=== PATIENT | male | born 1945 | race Caucasian/White ===

== ENCOUNTER → 2016-10-11 | Outpatient (CLI) | payer MEDICARE, OTHER | LOC: LAB.O 10:13 | PROVIDERS: ATTEND Nurse Practitioner Family | DX: I25.10 Atherosclerotic heart disease of native coronary artery without angina pectoris (principal) ==

== ENCOUNTER → 2016-10-18 | Outpatient (CLI) | payer MEDICARE, OTHER | LOC: LAB.O 10:43 | PROVIDERS: ATTEND Nurse Practitioner Family | DX: I25.10 Atherosclerotic heart disease of native coronary artery without angina pectoris (principal) ==

== ENCOUNTER → 2016-11-09 | Outpatient (CLI) | payer MEDICARE, OTHER | END | disposition home or self-care (01) | LOC: LAB.O 09:59 | PROVIDERS: ATTEND Nurse Practitioner Family | DX: I25.10 Atherosclerotic heart disease of native coronary artery without angina pectoris (principal) ==

== ENCOUNTER → 2016-12-19 | Outpatient (CLI) | payer MEDICARE, OTHER | END | disposition home or self-care (01) | LOC: LAB.O 09:21 | PROVIDERS: ATTEND Nurse Practitioner Family | DX: I25.10 Atherosclerotic heart disease of native coronary artery without angina pectoris (principal) ==

== ENCOUNTER → 2016-12-30 | Outpatient (CLI) | payer MEDICARE, OTHER ==
--- NOTE | 2017-01-01 06:56 | US ---
Procedure: US CAROTID DOPPLER BILATERAL Exam Date: 12/30/2016 9:45 AM CDT Ordering Provider: Sravani Coronado Clinical Indication: ATHEROSCLEROSIS Comparison: None TECHNIQUE : Real-time cerebrovascular ultrasonography was obtained from sternal notch to the angle of the mandible bilaterally utilizing key scale, color flow and spectral Doppler analysis. Systolic velocity ratios were calculated for internal carotid artery to common carotid artery bilaterally. FINDINGS: RIGHT CAROTID BIFURCATION: Mild atherosclerotic plaque. Peak systolic and end-diastolic velocities in the right internal carotid artery are 52 and 11 cm/s. Internal carotid/common carotid ratio is 0.6. Right vertebral flow is antegrade. LEFT CAROTID BIFURCATION: Mild atherosclerotic plaque. Peak systolic and end-diastolic velocities in the left internal carotid artery are 87 and 19 cm/s. Internal carotid/common carotid ratio is 0.7. Left vertebral flow is antegrade. IMPRESSION: 1. Mild atherosclerotic plaque in each carotid bulb and ICA origin. 2. There is no significant stenosis (36 % on the right and 35% on the left) at both ICA origins. 3. Bilateral antegrade vertebral artery flow. Electronically signed by: Wayne Robins MD 01/01/2017 6:55 AM CDT
== END | disposition home or self-care (01) ==
LOC: US 09:37
PROVIDERS: ATTEND Nurse Practitioner Family
DX: I65.23 Occlusion and stenosis of bilateral carotid arteries (principal); I25.10 Atherosclerotic heart disease of native coronary artery without angina pectoris; I70.8 Atherosclerosis of other arteries

== ENCOUNTER → 2017-01-30 | Outpatient (CLI) | payer MEDICARE, OTHER | END | disposition home or self-care (01) | LOC: LAB.O 10:04 | PROVIDERS: ATTEND General Practice | DX: I25.10 Atherosclerotic heart disease of native coronary artery without angina pectoris (principal) ==

== ENCOUNTER → 2017-03-09 | Outpatient (CLI) | payer MEDICARE, OTHER | END | disposition home or self-care (01) | LOC: LAB.O 09:42 | PROVIDERS: ATTEND Nurse Practitioner Family | DX: I25.10 Atherosclerotic heart disease of native coronary artery without angina pectoris (principal) ==

== ENCOUNTER → 2017-03-22 | Outpatient (CLI) | payer MEDICARE, OTHER | END | disposition home or self-care (01) | LOC: LAB.O 10:46 | PROVIDERS: ATTEND Nurse Practitioner Family | DX: I25.10 Atherosclerotic heart disease of native coronary artery without angina pectoris (principal) ==

== ENCOUNTER → 2017-06-19 | Outpatient (CLI) | payer MEDICARE, OTHER | END | disposition home or self-care (01) | LOC: LAB.O 11:56 | PROVIDERS: ATTEND Nurse Practitioner Family | DX: I25.10 Atherosclerotic heart disease of native coronary artery without angina pectoris (principal) ==

== ENCOUNTER → 2017-07-31 | Outpatient (CLI) | payer MEDICARE, OTHER | END | disposition home or self-care (01) | LOC: LAB.O 10:35 | PROVIDERS: ATTEND Nurse Practitioner Family | DX: I48.91 Unspecified atrial fibrillation (principal) ==

== ENCOUNTER → 2017-10-03 | Outpatient (CLI) | payer MEDICARE, OTHER | END | disposition home or self-care (01) | LOC: LAB.O 10:27 | PROVIDERS: ATTEND Nurse Practitioner Family | DX: I48.91 Unspecified atrial fibrillation (principal) ==

== ENCOUNTER → 2017-12-06 | Outpatient (CLI) | payer MEDICARE, OTHER | LOC: LAB.O 10:03 | PROVIDERS: ATTEND Nurse Practitioner Family | DX: I48.91 Unspecified atrial fibrillation (principal) ==

== ENCOUNTER → 2018-01-03 | Outpatient (CLI) | payer MEDICARE, OTHER | LOC: LAB.O 10:54 | PROVIDERS: ATTEND Nurse Practitioner Family | DX: I48.91 Unspecified atrial fibrillation (principal) ==

== ENCOUNTER → 2018-01-19 | Outpatient (CLI) | payer MEDICARE, OTHER | LOC: LAB.O 10:52 | PROVIDERS: ATTEND Nurse Practitioner Family | DX: I48.91 Unspecified atrial fibrillation (principal) ==

== ENCOUNTER → 2018-01-30 | Outpatient (CLI) | payer MEDICARE, OTHER | LOC: LAB.O 10:34 | PROVIDERS: ATTEND Nurse Practitioner Family | DX: I48.91 Unspecified atrial fibrillation (principal) ==

== ENCOUNTER → 2018-05-18 | Outpatient (CLI) | payer MEDICARE, OTHER | LOC: LAB.O 14:00 | PROVIDERS: ATTEND Nurse Practitioner Family | DX: I48.91 Unspecified atrial fibrillation (principal) ==

== ENCOUNTER → 2018-05-28 | Outpatient (CLI) | payer MEDICARE, OTHER | LOC: LAB.O 14:10 | PROVIDERS: ATTEND Nurse Practitioner Family | DX: I48.91 Unspecified atrial fibrillation (principal) ==

== ENCOUNTER → 2018-07-10 | Outpatient (CLI) | payer MEDICARE, OTHER | LOC: LAB.O 11:25 | PROVIDERS: ATTEND Nurse Practitioner Family | DX: I48.91 Unspecified atrial fibrillation (principal) ==

== ENCOUNTER → 2018-08-29 | Outpatient (CLI) | payer MEDICARE, OTHER | LOC: LAB.O 10:49 | PROVIDERS: ATTEND Nurse Practitioner Family | DX: Z51.81 Encounter for therapeutic drug level monitoring (principal) ==

== ENCOUNTER → 2018-10-03 | Outpatient (CLI) | payer MEDICARE, OTHER | LOC: LAB.O 13:01 | PROVIDERS: ATTEND Nurse Practitioner Family | DX: Z51.81 Encounter for therapeutic drug level monitoring (principal) ==

== ENCOUNTER → 2018-10-16 | Outpatient (CLI) | payer MEDICARE, OTHER | LOC: LAB.O 13:46 | PROVIDERS: ATTEND Nurse Practitioner Family | DX: Z51.81 Encounter for therapeutic drug level monitoring (principal) ==

== ENCOUNTER → 2018-10-23 | Outpatient (CLI) | payer MEDICARE, OTHER | LOC: LAB.O 14:36 | PROVIDERS: ATTEND Nurse Practitioner Family | DX: Z51.81 Encounter for therapeutic drug level monitoring (principal) ==

== ENCOUNTER → 2018-12-10 | Outpatient (CLI) | payer MEDICARE, OTHER | LOC: LAB.O 12:49 | PROVIDERS: ATTEND Nurse Practitioner Family | DX: Z51.81 Encounter for therapeutic drug level monitoring (principal) ==

== ENCOUNTER → 2018-12-17 | Outpatient (CLI) | payer MEDICARE, OTHER | LOC: LAB.O 10:42 | PROVIDERS: ATTEND Nurse Practitioner Family | DX: Z51.81 Encounter for therapeutic drug level monitoring (principal) ==

== ENCOUNTER → 2019-02-25 | Outpatient (CLI) | payer MEDICARE, OTHER | LOC: LAB.O 13:34 | PROVIDERS: ATTEND Nurse Practitioner Family | DX: Z51.81 Encounter for therapeutic drug level monitoring (principal) ==

== ENCOUNTER 2019-03-11 08:11 | Emergency (ER) | payer MEDICARE, OTHER ==
[2019-03-11] MEDS ORDERED: ASPIRIN TABLET 325 MG TAB ONE (08:24)
[2019-03-11] MEDS: ASPIRIN TABLET 325 MG TAB PO ONE (08:43)
--- NOTE | 2019-03-11 08:58 | RAD ---
Study: Single Frontal Radiograph of the Chest. Indication:palpitations Comparison: January 31, 2011 Impression: Median sternotomy wires. Cardiomegaly without failure. Scattered calcified pleural plaques at the lung bases. In addition patchy calcifications project over the mid and upper lungs in a similar configuration to the prior but slightly progressed. These likely reflect calcified pleural plaques as well. Mild elevation right hemidiaphragm. No consolidation, pleural effusion, or pneumothorax. No acute osseous abnormality. Electronically signed by: Augusto Everett MD 03/11/2019 8:56 AM CDT
[2019-03-11] MEDS ORDERED: MAGNESIUM SULFATE PREMIX 2GM 50 ML IVPB ONE (10:00)
[2019-03-11] MEDS: MAGNESIUM SULFATE PREMIX 2GM 2 GM in PREMIX BAG 1 BAG IVPB ONE (10:13)
[2019-03-11] MEDS: SODIUM CHLORIDE 0.9% 500ML 500 ML IVS ONE (10:17)
--- NOTE | 2019-03-11 10:31 | ED.PDOC ---
History of Present Illness - General Chief Complaint: Cardiovascular Problem Stated Complaint: Heart palpitations this AM Time Seen by Provider: 03/11/19 09:47 Source: patient Exam Limitations: no limitations - History of Present Illness Initial Comments: Rickey Bonilla 73 y/o male came to er after he felt heart ws pounding on waking up this AM.Denies dizziness,chest pains,lightheadedness.He stated had cut down on his beta bobby since he had been feeling well .Has history of OH/CABG/stent a.fib on anticoagulation with warfarin.DM 2. Timing/Duration: 4-6 hours Severity: moderate Location: other - NO CHEST PAINS Activities at Onset: rest Prior Chest Pain/Cardiac Workup: cardiac cath, echocardiography, heart attack Improving Factors: nothing Worsening Factors: nothing Nitro Today/Relief: 0.4 mg x 1, provided at home Aspirin Treatment Today: 81 mg x 4, provided by ED Associated Symptoms: denies symptoms Allergies/Adverse Reactions: Allergies NO KNOWN ALLERGY Allergy (Verified 03/11/19 08:53) Home Medications: Ambulatory Orders Aspirin [Aspirin Adult Low Dose] 81 mg PO DAILY 03/11/19 Cyclobenzaprine HCl [Flexeril] 10 mg PO TID 03/11/19 Krill Oil [Krill Oil [place]-3] 1 cap PO DAILY 03/11/19 Metformin HCl [Glucophage] 1,000 mg PO BID 03/11/19 Metoprolol Succinate [[place] Sprinkle] 50 mg PO DAILY 03/11/19 Omeprazole 20 mg PO DAILY 03/11/19 Pravastatin Sodium 40 mg PO DAILY 03/11/19 Ramipril 5 mg PO BID 03/11/19 Warfarin Sodium 6 mg PO DAILY 03/11/19 Review of Systems - Review of Systems Constitutional: States: no symptoms reported EENTM: States: no symptoms reported Respiratory: States: no symptoms reported Cardiology: States: see HPI, palpitations Gastrointestinal/Abdominal: States: no symptoms reported Genitourinary: States: no symptoms reported Musculoskeletal: States: no symptoms reported Skin: States: no symptoms reported Neurological: States: no symptoms reported All other Systems: Reviewed and Negative, No Change from Baseline Past Medical History (General) - Patient Medical History Hx Stroke: No Hx of COPD: No Hx Cardiac Disorders: Yes - A fib Hx Congestive Heart Failure: Yes Hx Hypertension: Yes Hx Diabetes: Yes Surgical History: appendectomy, coronary bypass surgery, other - cardiac stent - Vaccination History Hx Tetanus, Diphtheria Vaccination: Yes Hx Influenza Vaccination: Yes Hx Pneumococcal Vaccination: Yes - Social History Hx Tobacco Use: Yes Hx Alcohol Use: Yes - quit Hx Substance Use: No Hx Substance Use Treatment: No Hx Depression: No Hx Physical Abuse: No Hx Emotional Abuse: No - Activities of Daily Living Grooming Ability: Independent Eating (Feeding) Ability: Independent Toileting Ability: Independent - Female History Patient is a Female of Child Bearing Age (10 -59 yrs old): No Patient : No Family Medical History - Family History Father Hx Cardiac Disease: Yes - brother-mi Hx Family Cancer: Yes - dad-pancreas;mom-ovarian Mother Hx Family Cancer: Yes Physical Exam - Physical Exam General Appearance: Alert, Comfortable, No apparent distress Eyes, Ears, Nose, Throat Exam: normal ENT inspection, TMs normal Neck: full range of motion, supple, normal inspection Respiratory: lungs clear, normal breath sounds, no respiratory distress Cardiovascular/Chest: normal peripheral pulses, no gallop, no murmur, irregularly irregular Peripheral Pulses: radial,right: 2+, radial,left: 2+ Gastrointestinal/Abdominal: non tender, soft, no organomegaly Extremity: no calf tenderness, pedal edema - +1 bilaterally Neurologic: alert, oriented x 3 Skin Exam: normal color, warm/dry Lymphatic: no adenopathy Progress - Progress Progress: 03/11/19 10:36 Vital Signs - 8 hr 03/11/19 03/11/19 03/11/19 08:16 08:20 08:21 Temperature 96.6 F L Pulse Rate [L 69 69 finger] Respiratory 20 20 Rate Blood Pressure 158/83 [L arm] O2 Sat by Pulse 96 96 Oximetry - Results/Orders Results/Orders: 03/11/19 08:27 Telemetry .ONCE Pulse Ox Stat 03/11/19 08:30 EKG STAT 03/11/19 11:14 TROPONIN-I, ISTAT Urgent Laboratory Results - last 24 hr 03/11/19 03/11/19 08:40 11:14 WBC 7.6 RBC 4.40 L Hgb 12.9 L Hct 39.6 L MCV 89.8 MCH 29.4 MCHC 32.7 L RDW 14.3 Plt Count 194 MPV 10.3 Absolute Neuts (auto) 6.00 Absolute Lymphs (auto) 0.80 L Absolute Monos (auto) 0.50 Absolute Eos (auto) 0.30 Absolute Basos (auto) 0.00 Neutrophils % 78.9 H Lymphocytes % 10.4 L Monocytes % 6.7 Eosinophils % 3.4 Basophils % 0.6 PT 29.4 H* INR 2.97 H PTT (SP) 35.0 H Sodium 131 L Potassium 4.2 Chloride 96 L Carbon Dioxide 24 Anion Gap 15.2 BUN 14 Creatinine 0.94 BUN/Creatinine Ratio 14.9 Random Glucose 132 H Serum Osmolality 265.0 L Calcium 9.7 Magnesium 1.4 L Creatine Kinase 72 CK-MB (CK-2) 2.4 CK-MB (CK-2) % Not Reportable Troponin I 0.02 0.02 Discuss all test results with patient - EKG/XRAY/CT EKG: Atrial, Fibrillation, nonspecific ST T wave Chg Comments: HR-66 Departure - Departure Clinical Impression: Heart palpitations, Hypomagnesemia, Atrial fibrillation with controlled ventricular rate, 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 Copy, Patient Portal Self Enrollment Referrals: Sampson Linares MD [Primary Care Provider] - 1-2 Weeks Home Medications: Ambulatory Orders Aspirin [Aspirin Adult Low Dose] 81 mg PO DAILY 03/11/19 Cyclobenzaprine HCl [Flexeril] 10 mg PO TID 03/11/19 Krill Oil [Krill Oil [place]-3] 1 cap PO DAILY 03/11/19 Metformin HCl [Glucophage] 1,000 mg PO BID 03/11/19 Metoprolol Succinate [[place] Sprinkle] 50 mg PO DAILY 03/11/19 Omeprazole 20 mg PO DAILY 03/11/19 Pravastatin Sodium 40 mg PO DAILY 03/11/19 Ramipril 5 mg PO BID 03/11/19 Warfarin Sodium 6 mg PO DAILY 03/11/19 Additional Instructions: Continue with all home medications;Take over the counter Vitamin d-3 and Magnesium one pill daily(over the counter;return to ER as needed
[2019-03-11 11:38] VITALS: O2SAT 97
[2019-03-11 12:46] VITALS: BP 123/73; TEMP 96
== END 2019-03-11 12:46 | disposition home or self-care (01) ==
LOC: ER 08:11
DX: I48.91 Unspecified atrial fibrillation (principal); R00.2 Palpitations; E83.42 Hypomagnesemia; I50.9 Heart failure, unspecified; I11.0 Hypertensive heart disease with heart failure; I25.2 Old myocardial infarction; E11.9 Type 2 diabetes mellitus without complications; Z79.01 Long term (current) use of anticoagulants; Z95.5 Presence of coronary angioplasty implant and graft; Z87.891 Personal history of nicotine dependence; Z79.82 Long term (current) use of aspirin; Z79.899 Other long term (current) drug therapy
CPT/HCPCS: 36415; 71045; 80048; 82550; 82553; 84484; 85025; 85610; 85730; 93005; 94760; J3475; J7040

== ENCOUNTER → 2019-03-18 | Outpatient (CLI) | payer MEDICARE, OTHER | LOC: RESP 13:27 | PROVIDERS: ATTEND Nuclear Medicine Nuclear Cardiology | DX: R00.2 Palpitations (principal) ==

== ENCOUNTER 2019-04-03 09:49 | Emergency (ER) | payer MEDICARE, OTHER ==
--- NOTE | 2019-04-03 10:35 | RAD ---
EXAM DESCRIPTION: Chest,2 Views CLINICAL HISTORY: bradycardia COMPARISON: Previous study March 11, 2019 TECHNIQUE: PA/lateral FINDINGS: Large pleural plaques bilaterally unchanged in configuration. Sternotomy wires are present. Mildly elevated right hemidiaphragm. Heart size is prominent with normal pulmonary vascularity. No pleural effusion or pneumothorax. Lungs are otherwise clear with no consolidating infiltrate. Lateral view shows intact sternum and T-spine. Calcific densities clustered over the cardiac silhouette may be related to pleural plaques. Position is higher than expected for gallstones. IMPRESSION: Prominent heart without congestive failure. Electronically signed by: Michael Hairston MD 04/03/2019 10:33 AM CDT
--- NOTE | 2019-04-03 11:22 | ED.PDOC ---
History of Present Illness - General Chief Complaint: Cardiovascular Problem Stated Complaint: bradycardia Time Seen by Provider: 04/03/19 10:00 Source: patient Exam Limitations: no limitations - History of Present Illness Initial Comments: the patient is a 74-year-old male presenting to the emergency room after being sent over from the clinic secondary to functional bradycardia. The patient does have a history of very frequent PVCs. His PVCs do not generate a palpable pulse. When he is having very few PVCs he does have a more than adequate blood pressure. When he stacks up a bunch of PVCs his blood pressure does fall. No syncope. No near syncope. He reports sometimes he feels more PVCs when he lies back flat. He was recently fluid overloaded but now appears to be euvolemic. No chest pain. No shortness of breath currently. He has 98% on room air. He is pleasant and cooperative. He does have some mild dementia.this is a known problem. He does see Dr. Romero. He is scheduled see Dr. Romero again next week. Timing/Duration: unsure Severity: mild Improving Factors: nothing Worsening Factors: nothing Associated Symptoms: denies symptoms Allergies/Adverse Reactions: Allergies NO KNOWN ALLERGY Allergy (Verified 03/11/19 08:53) Home Medications: Ambulatory Orders Aspirin [Aspirin Adult Low Dose] 81 mg PO DAILY 03/11/19 Cyclobenzaprine HCl [Flexeril] 10 mg PO TID 03/11/19 Krill Oil [Krill Oil [place]-3] 1 cap PO DAILY 03/11/19 Metformin HCl [Glucophage] 1,000 mg PO BID 03/11/19 Omeprazole 20 mg PO BEDTIME 03/11/19 Pravastatin Sodium 40 mg PO DAILY 03/11/19 Ramipril 5 mg PO BEDTIME 03/11/19 Warfarin Sodium 6 mg PO .MOTUTHFRSU 03/11/19 Furosemide [Lasix] 20 mg PO DAILY 04/03/19 Metoprolol Succinate [Metoprolol Succinate ER] 50 mg PO DAILY 04/03/19 Review of Systems - Review of Systems Constitutional: States: no symptoms reported EENTM: States: no symptoms reported Respiratory: States: short of breath Cardiology: States: see HPI Gastrointestinal/Abdominal: States: no symptoms reported Genitourinary: States: no symptoms reported Musculoskeletal: States: no symptoms reported Skin: States: no symptoms reported Neurological: States: no symptoms reported Endocrine: States: no symptoms reported All other Systems: No Change from Baseline Past Medical History (General) - Patient Medical History Hx Stroke: No Hx of COPD: No Hx Cardiac Disorders: Yes - A fib Hx Congestive Heart Failure: No Hx Hypertension: Yes Hx Diabetes: Yes Surgical History: appendectomy, coronary bypass surgery - Vaccination History Hx Tetanus, Diphtheria Vaccination: Yes Hx Influenza Vaccination: Yes Hx Pneumococcal Vaccination: Yes - Social History Hx Tobacco Use: Yes Hx Alcohol Use: Yes - quit Hx Substance Use: No Hx Substance Use Treatment: No Hx Depression: No Hx Physical Abuse: No Hx Emotional Abuse: No - Female History Patient : No Family Medical History - Family History Father Hx Cardiac Disease: Yes - brother-mi Hx Family Cancer: Yes - dad-pancreas;mom-ovarian Mother Hx Family Cancer: Yes Physical Exam - Physical Exam General Appearance: Alert, Comfortable, No apparent distress Eye Exam: bilateral normal Ears, Nose, Throat: hearing grossly normal, normal ENT inspection Neck: full range of motion, supple Respiratory: lungs clear, normal breath sounds, no respiratory distress, no accessory muscle use Cardiovascular/Chest: normal peripheral pulses, no edema - +1 edema bilateral lower extremities, irregularly irregular Peripheral Pulses: radial,right: 2+, radial,left: 2+, dorsalis pedis,right: 2+, dorsalis pedis,left: 2+ Gastrointestinal/Abdominal: non tender, soft Rectal Exam: deferred Back Exam: no CVA tenderness, no vertebral tenderness Extremity: normal range of motion, non-tender, normal inspection, normal capillary refill, pedal edema Neurologic: sand slinger II-XII nml as tested, alert, normal mood/affect, oriented x 3 Skin Exam: normal color Comments: Vital Signs - 24 hr 04/03/19 04/03/19 10:00 10:50 Temperature 98.2 F Pulse Rate 68 Pulse Rate [ 85 Left Brachial] Respiratory 16 Rate Blood Pressure 155/89 [Left Arm] O2 Sat by Pulse 97 Oximetry Progress - Progress Progress: 04/03/19 11:24 the patient's a 74-year-old male presenting to the emergency room secondary to bradycardia by pulse. The patient has a sinus rhythm that is frequently interrupted with frequent PVCs. He has normal blood pressure and feels normal when he is having few PVCs. His blood pressure does drop some when he starts stacking PVCs, and this does at time make him feel a little short of breath and weak. His PVCs do not create a palpable pulse. When he was in bigeminy has pulse does functionally dropped down to the high 30s to low 40s. This is apparently not a new problem. For now I want the patient to hold his lisinopril so his blood pressure is a little higher when he has periods with more frequent PVCs. He is to continue his Lasix as previously written. He is t o continue his metoprolol. Laboratory work is reassuring. The BNP was 670 here today. Lungs are clear of excess fluid. He does appear to be euvolemic. He is in no distress at this time and oxygen saturations are in the high 90s on room air. ER warnings were given. Follow-up with Dr. Romero next week. - Results/Orders Results/Orders: chest x-ray shows mild cardiomegaly but no overt fluid overload. He does have chronic calcification changes on his chest x-ray there likely pleural-based. EKG shows a sinus rhythm with very frequent PVCs. Left atrial dilation. Left bundle branch block. Left axis deviation. Poor R-wave progression corresponding to above. Difficult to tell in acute abnormality when compared to previous rate is 85 bpm however pulse is about 50 bpm. Laboratory Tests 04/03/19 04/03/19 04/03/19 09:50 09:50 09:50 WBC 6.0 RBC 4.47 L Hgb 13.1 L Hct 40.2 L MCV 89.9 MCH 29.3 MCHC 32.6 L RDW 14.5 Plt Count 211 MPV 10.3 Absolute Neuts (auto) 3.70 Absolute Lymphs (auto) 1.30 Absolute Monos (auto) 0.60 Absolute Eos (auto) 0.40 Absolute Basos (auto) 0.00 Neutrophils % 61.3 Lymphocytes % 22.0 Monocytes % 9.5 H Eosinophils % 6.4 H Basophils % 0.8 PT 22.7 H INR 2.29 H PTT (SP) 32.5 H Sodium 134 L Potassium 3.9 Chloride 98 L Carbon Dioxide 26 Anion Gap 13.9 BUN 15 Creatinine 1.02 BUN/Creatinine Ratio 14.7 Random Glucose 114 H Serum Osmolality 269.9 L Calcium 9.7 Magnesium 1.8 Total Bilirubin 1.2 H AST 22 ALT 16 Alkaline Phosphatase 62 Creatine Kinase 100 CK-MB (CK-2) 3.4 CK-MB (CK-2) % Not Reportable Troponin I 0.03 B-Natriuretic Peptide 679.0 H* Serum Total Protein 7.6 Albumin 4.3 Globulin 3.3 Albumin/Globulin Ratio 1.3 TSH 4.89 Departure - Departure Clinical Impression: Bradycardia with 41-50 beats per minute, Symptomatic PVCs Disposition: Discharge to Home or Self Care Condition: Fair Departure Forms: ED Discharge - Pt. Copy, Patient Portal Self Enrollment Diet: diabetic diet Activity: increase activity as tolerated Referrals: Sampson Linares MD [Primary Care Provider] - 1-2 Weeks Home Medications: Ambulatory Orders Aspirin [Aspirin Adult Low Dose] 81 mg PO DAILY 03/11/19 Cyclobenzaprine HCl [Flexeril] 10 mg PO TID 03/11/19 Krill Oil [Krill Oil [place]-3] 1 cap PO DAILY 03/11/19 Metformin HCl [Glucophage] 1,000 mg PO BID 03/11/19 Omeprazole 20 mg PO BEDTIME 03/11/19 Pravastatin Sodium 40 mg PO DAILY 03/11/19 Ramipril 5 mg PO BEDTIME 03/11/19 Warfarin Sodium 6 mg PO .MOTUTHFRSU 03/11/19 Furosemide [Lasix] 20 mg PO DAILY 04/03/19 Metoprolol Succinate [Metoprolol Succinate ER] 50 mg PO DAILY 04/03/19 Additional Instructions: the patient's a 74-year-old male presenting to the emergency room secondary to bradycardia by pulse. The patient has a sinus rhythm that is frequently interrupted with frequent PVCs. He has normal blood pressure and feels normal when he is having few PVCs. His blood pressure does drop some when he starts stacking PVCs, and this does at time make him feel a little short of breath and weak. His PVCs do not create a palpable pulse. When he was in bigeminy has pulse does functionally dropped down to the high 30s to low 40s. This is apparently not a new problem. For now I want the patient to hold his lisinopril so his blood pressure is a little higher when he has periods with more frequent PVCs. He is to continue his Lasix as previously written. He is to continue his metoprolol. Laboratory work is reassuring. The BNP was 670 here today. Lungs are clear of excess fluid. He does appear to be euvolemic. He is in no distress at this time and oxygen saturations are in the high 90s on room air. ER warnings were given. Follow-up with Dr. Romero next week.
[2019-04-03 11:45] VITALS: BP 154/85; TEMP 97.7; O2SAT 96
== END 2019-04-03 11:45 | disposition home or self-care (01) ==
LOC: ER 09:49
DX: R00.1 Bradycardia, unspecified (principal); I49.3 Ventricular premature depolarization; I44.7 Left bundle-branch block, unspecified; I48.91 Unspecified atrial fibrillation; I10 Essential (primary) hypertension; E11.9 Type 2 diabetes mellitus without complications; Z87.891 Personal history of nicotine dependence; Z95.1 Presence of aortocoronary bypass graft; Z79.01 Long term (current) use of anticoagulants; Z79.84 Long term (current) use of oral hypoglycemic drugs; Z79.899 Other long term (current) drug therapy; Z79.82 Long term (current) use of aspirin

== ENCOUNTER 2019-04-10 07:18 | Emergency (ER) | payer MEDICARE, OTHER ==
[2019-04-10] MEDS ORDERED: NITROGLYCERIN 0.4 MG 25 EA TAB SL ONE (07:23)
[2019-04-10] MEDS ORDERED: ASPIRIN TABLET 325 MG TAB PO ONE (07:23)
[2019-04-10 07:30] VITALS: O2SAT 99
--- NOTE | 2019-04-10 07:48 | ED.PDOC ---
History of Present Illness - General Chief Complaint: Chest Pain/ME Stated Complaint: Chest pressure, SOB Time Seen by Provider: 04/10/19 07:31 Source: patient - History of Present Illness Initial Comments: THIS PATIENT HAS A HX OF CAD, CHF AND IS UNDER TREATMENT BY DR. YOO IN [place]. 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 THIS MORNING HE WAKES UP WITH SOB, AND A BRADYCARDIA OF 40. HE ALSO NOTED MILD CHEST PRESSURE, 3/10. HE HAD QUADRUPLE BYPASS SURGERY 10 YEARS AGO. HE WAS RECENTLY SEEN IN THE ED FOR SIMILAR SYMPTOMS. Timing/Duration: 1 hour, 7-24 hours Location: substernal Chest Pain Radiation: no radiation Nitro Today/Relief: no nitro taken today Aspirin Treatment Today: no aspirin today Associated Symptoms: shortness of breath Allergies/Adverse Reactions: Allergies NO KNOWN ALLERGY Allergy (Verified 03/11/19 08:53) Home Medications: Ambulatory Orders Aspirin [Aspirin Adult Low Dose] 81 mg PO DAILY 03/11/19 Cyclobenzaprine HCl [Flexeril] 10 mg PO TID 03/11/19 Krill Oil [Krill Oil [place]-3] 1 cap PO DAILY 03/11/19 Metformin HCl [Glucophage] 1,000 mg PO BID 03/11/19 Omeprazole 20 mg PO BEDTIME 03/11/19 Pravastatin Sodium 40 mg PO DAILY 03/11/19 Warfarin Sodium 6 mg PO .MOTUTHFRSU 03/11/19 Furosemide [Lasix] 20 mg PO DAILY 04/03/19 Metoprolol Succinate [Metoprolol Succinate ER] 50 mg PO DAILY 04/03/19 ALPRAZolam [Xanax] 0.25 mg PO TID 10 Days tab 04/10/19 Review of Systems - Review of Systems Constitutional: States: diaphoresis EENTM: States: no symptoms reported Respiratory: States: no symptoms reported Cardiology: States: chest pain, palpitations Gastrointestinal/Abdominal: States: no symptoms reported Genitourinary: States: no symptoms reported Musculoskeletal: States: no symptoms reported Skin: States: no symptoms reported Neurological: States: no symptoms reported Endocrine: States: no symptoms reported Past Medical History (General) - Patient Medical History Hx Stroke: No Hx of COPD: No Hx Cardiac Disorders: Yes - A fib Hx Congestive Heart Failure: No Hx Hypertension: Yes Hx Diabetes: Yes Hx MRSA: No Surgical History: appendectomy, coronary bypass surgery, tonsillectomy - Vaccination History Hx Tetanus, Diphtheria Vaccination: Yes Hx Influenza Vaccination: Yes - 2017 Hx Pneumococcal Vaccination: Yes - Social History Hx Tobacco Use: Yes - Quit 1977 Hx Alcohol Use: No Hx Substance Use: No Hx Substance Use Treatment: No Hx Depression: No Hx Physical Abuse: No Hx Emotional Abuse: No - Female History Patient : No Family Medical History - Family History Father Hx Cardiac Disease: Yes - brother-mi Hx Family Cancer: Yes - dad-pancreas;mom-ovarian Mother Hx Family Cancer: Yes Physical Exam - Physical Exam General Appearance: Alert, Anxious, No apparent distress, Well Developed, Well Hydrated Eyes, Ears, Nose, Throat Exam: PERRL/EOMI Neck: non-tender Respiratory: chest non-tender, normal breath sounds Cardiovascular/Chest: normal peripheral pulses, no gallop, other - IRREGULAR HEART RATE NO MURMURS RUBS OR CLICKS NOTED. Peripheral Pulses: radial,right: 2+, radial,left: 2+ Gastrointestinal/Abdominal: normal bowel sounds, non tender, soft, no organomegaly Extremity: normal range of motion, non-tender, normal inspection, other - BILATERAL 1 + PITTING EDEMA Progress - Progress Progress: 04/10/19 09:32 THE PATIENT IS ANXIOUS, XR IF NEGATIVE FOR ACUTE PROCESS AND TROPONIN I X TWO A WNL. HE HAS AN APPT WITH DR. MCFARLAND THIS COMING MONDAY. WILL DC HOME. - Results/Orders Results/Orders: 04/10/19 07:23 Telemetry .ONCE EKG Stat Pulse Ox Stat Laboratory Results WBC 6.4 K/mm3 (4.8-10.8) 04/10/19 07:30 RBC 4.41 M/mm3 (4.70-6.10) L 04/10/19 07:30 Hgb 13.0 gm/dL (14.0-18.0) L 04/10/19 07:30 Hct 39.7 % (42.0-52.0) L 04/10/19 07:30 MCV 90.0 fl (80.0-94.0) 04/10/19 07:30 MCH 29.4 pg (27.0-31.0) 04/10/19 07:30 MCHC 32.7 g/dL (33.0-37.0) L 04/10/19 07:30 RDW 14.6 % (11.5-14.5) H 04/10/19 07:30 Plt Count 211 K/mm3 (130-400) 04/10/19 07:30 MPV 9.6 fl (7.40-10.4) 04/10/19 07:30 Absolute Neuts (auto) 4.30 K/uL (1.8-6.8) 04/10/19 07:30 Absolute Lymphs (auto) 1.20 K/uL (1.0-3.4) 04/10/19 07:30 Absolute Monos (auto) 0.50 K/uL (0.2-0.8) 04/10/19 07:30 Absolute Eos (auto) 0.30 K/uL (0.0-0.4) 04/10/19 07:30 Absolute Basos (auto) 0.10 K/uL (0.0-0.1) 04/10/19 07:30 Neutrophils % 66.8 % (42.0-78.0) 04/10/19 07:30 Lymphocytes % 19.0 % (20.0-50.0) L 04/10/19 07:30 Monocytes % 7.2 % (2.0-9.0) 04/10/19 07:30 Eosinophils % 4.9 % (1.0-5.0) 04/10/19 07:30 Basophils % 2.1 % (0.0-2.0) H 04/10/19 07:30 PT 17.6 SECONDS (9.0-10.9) H 04/10/19 07:30 INR 1.77 (0.9-1.15) H 04/10/19 07:30 PTT (SP) 30.0 SECONDS (21.8-31.6) 04/10/19 07:30 Sodium 134 mmol/L (135-145) L 04/10/19 07:30 Potassium 4.0 mmol/L (3.6-5.0) 04/10/19 07:30 Chloride 98 mmol/L (101-111) L 04/10/19 07:30 Carbon Dioxide 23 mmol/L (21-31) 04/10/19 07:30 Anion Gap 17.0 (12-18) 04/10/19 07:30 BUN 18 mg/dL (7-18) 04/10/19 07:30 Creatinine 1.11 mg/dL (0.6-1.3) 04/10/19 07:30 BUN/Creatinine Ratio 16.2 (10-20) 04/10/19 07:30 Random Glucose 156 mg/dL (70-105) H 04/10/19 07:30 Serum Osmolality 273.3 mOsm/L (275-295) L 04/10/19 07:30 Calcium 9.6 mg/dL (8.4-10.2) 04/10/19 07:30 Magnesium 1.8 mg/dL (1.8-2.5) 04/10/19 07:30 Creatine Kinase 135 IU/L (38-174) 04/10/19 07:30 CK-MB (CK-2) 4.0 ng/mL (0.0-4.4) 04/10/19 07:30 CK-MB (CK-2) % Not Reportable 04/10/19 07:30 Troponin I 0.02 ng/mL (0.01-0.05) 04/10/19 08:50 B-Natriuretic Peptide 551.0 pg/ml (0-100) H* 04/10/19 07:30 Departure - Departure Clinical Impression: Anxiety, Left bundle branch block (LBBB) CAD (coronary artery disease) Qualifiers: Coronary Disease-Associated Artery/Lesion type: bypass graft, autologous artery Associated angina: with stable angina Qualified Code(s): I25.728 - Atherosclerosis of autologous artery coronary artery bypass graft(s) with other forms of angina pectoris Time of Disposition: 09:34 Disposition: Discharge to Home or Self Care Condition: Good Departure Forms: ED Discharge - Pt. Copy, Patient Portal Self Enrollment Instructions: DI for Chest Pain, Generalized Anxiety Disorder Diet: resume usual diet Referrals: Sampson Linares MD [Primary Care Provider] - 1-2 Weeks Prescriptions: ALPRAZolam [Xanax] 0.25 mg PO TID 10 Days tab Home Medications: Ambulatory Orders Aspirin [Aspirin Adult Low Dose] 81 mg PO DAILY 03/11/19 Cyclobenzaprine HCl [Flexeril] 10 mg PO TID 03/11/19 Krill Oil [Krill Oil [place]-3] 1 cap PO DAILY 03/11/19 Metformin HCl [Glucophage] 1,000 mg PO BID 03/11/19 Omeprazole 20 mg PO BEDTIME 03/11/19 Pravastatin Sodium 40 mg PO DAILY 03/11/19 Warfarin Sodium 6 mg PO .MOTUTHFRSU 03/11/19 Furosemide [Lasix] 20 mg PO DAILY 04/03/19 Metoprolol Succinate [Metoprolol Succinate ER] 50 mg PO DAILY 04/03/19 ALPRAZolam [Xanax] 0.25 mg PO TID 10 Days tab 04/10/19
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
[2019-04-10] MEDS ORDERED: LORazepam 0.5 MG TAB PO ONE (08:41)
[2019-04-10 09:41] VITALS: BP 133/88; TEMP 97.2
== END 2019-04-10 09:49 | disposition home or self-care (01) ==
LOC: ER 07:18
DX: I25.728 Atherosclerosis of autologous artery coronary artery bypass graft(s) with other forms of angina pectoris (principal); I44.7 Left bundle-branch block, unspecified; F41.9 Anxiety disorder, unspecified; R06.02 Shortness of breath; I48.91 Unspecified atrial fibrillation; I11.0 Hypertensive heart disease with heart failure; E11.9 Type 2 diabetes mellitus without complications; Z87.891 Personal history of nicotine dependence; Z90.49 Acquired absence of other specified parts of digestive tract; Z95.1 Presence of aortocoronary bypass graft; Z79.899 Other long term (current) drug therapy; Z79.01 Long term (current) use of anticoagulants; Z79.82 Long term (current) use of aspirin; I50.9 Heart failure, unspecified

== ENCOUNTER → 2019-04-19 | Outpatient (CLI) | payer MEDICARE, OTHER | LOC: LAB.O 12:33 | PROVIDERS: ATTEND Nurse Practitioner Family | DX: Z51.81 Encounter for therapeutic drug level monitoring (principal) ==

== ENCOUNTER → 2019-05-02 | Outpatient (CLI) | payer MEDICARE, OTHER | LOC: LAB.O 09:47 | PROVIDERS: ATTEND Nurse Practitioner Family | DX: Z51.81 Encounter for therapeutic drug level monitoring (principal) ==

== ENCOUNTER → 2019-06-04 | Outpatient (CLI) | payer MEDICARE, OTHER | LOC: LAB.O 14:58 | PROVIDERS: ATTEND Nurse Practitioner Family | DX: Z51.81 Encounter for therapeutic drug level monitoring (principal) ==

== ENCOUNTER → 2019-07-03 | Outpatient (CLI) | payer MEDICARE, OTHER | LOC: LAB.NP 11:32 | PROVIDERS: ATTEND Nurse Practitioner Family | DX: Z51.81 Encounter for therapeutic drug level monitoring (principal) ==

== ENCOUNTER → 2019-07-12 | Outpatient (CLI) | payer MEDICARE, OTHER | LOC: LAB.O 12:28 | PROVIDERS: ATTEND Nurse Practitioner Family | DX: Z51.81 Encounter for therapeutic drug level monitoring (principal) ==

== ENCOUNTER → 2019-07-26 | Outpatient (CLI) | payer MEDICARE, OTHER | LOC: LAB.O 11:24 | PROVIDERS: ATTEND Nurse Practitioner Family | DX: Z51.81 Encounter for therapeutic drug level monitoring (principal) ==

== ENCOUNTER → 2019-08-19 | Outpatient (CLI) | payer MEDICARE, OTHER | LOC: LAB.O 14:04 | PROVIDERS: ATTEND Nurse Practitioner Family | DX: Z51.81 Encounter for therapeutic drug level monitoring (principal) ==

== ENCOUNTER → 2019-10-01 | Outpatient (CLI) | payer MEDICARE, OTHER | LOC: LAB.O 10:26 | PROVIDERS: ATTEND Nurse Practitioner Family | DX: I48.91 Unspecified atrial fibrillation (principal) ==

== ENCOUNTER → 2019-11-07 | Outpatient (CLI) | payer MEDICARE, OTHER ==
--- NOTE | 2019-11-07 15:29 | MRI ---
EXAM DESCRIPTION: Brain w/o Contrast: MRI. CLINICAL HISTORY: R26.89 OTHER ABNORMALITIES OF GAIT AND MOBILITY COMPARISON: None. TECHNIQUE: Multiplanar, high-field MRI unit, multiple diffusion sequences, multiple conventional sequences without contrast. FINDINGS: Small bilateral foci of hyperintense FLAIR and T2-weighted signal in the subcortical white matter frontal parietal and occipital lobes. Small foci also in the periventricular white matter abutting the frontal horns of the ventricles.. No hemorrhage, no cerebral edema, no mass-effect. Small foci of hyperintense FLAIR signal in the anterior right basal ganglia. No hemorrhage or cerebral edema. Left basal ganglia is unremarkable.. Normal signal in the cerebellar hemispheres. Punctate focus of hyperintense FLAIR signal in the left tyler. No hemorrhage, no parenchymal edema, no mass-effect. These lesions show normal diffusion Remainder of the brain demonstrating concordance of the diffusion and non-diffusion sequences with no diffusion restriction. Cortical sulci, ventricles, and other CSF spaces, and the subdural spaces are mildly prominent for patient's age but symmetric.. No effacement or displacement. No midline shift. No extra-axial hemorrhage. Normal flow signal void in the major vessels of the [place], and the venous sinuses. IACs are symmetric bilaterally. Normal signal in the bilateral mastoid air cells. No mass effect in the bilateral cerebellopontine angles. Pituitary gland occupies most of the sella. Base of the cerebellar tonsils is at the level of the foramen magnum. Minimal mucoperiosteal thickening in the paranasal sinuses. The bony calvarium is intact. IMPRESSION: 1. Bilateral small punctate foci of abnormal subcortical white matter signal in the frontoparietal and occipital lobes bilaterally. Similar focal lesion in the anterior right basal ganglia. No hemorrhage, no mass effect, and no diffusion restriction. Most likely related to aging, with no without cerebral microvascular disease. 2. Symmetric prominence of the cortical sulci and fissures bilaterally indicating atrophy without focal lesion. Normal diffusion in the brain and brainstem. 3. Small focal lesion left tyler most likely related to cerebral microvascular disease or aging. 4. Minimal chronic paranasal sinusitis. Electronically signed by: Christos Cedeno MD 11/07/2019 3:27 PM EXTERNAL RELATIONS MANAGER
== END ==
LOC: MRI 09:00
PROVIDERS: ATTEND Psychiatry & Neurology Neurology
DX: R26.89 Other abnormalities of gait and mobility (principal); R90.82 White matter disease, unspecified; G93.9 Disorder of brain, unspecified; J32.9 Chronic sinusitis, unspecified

== ENCOUNTER 2020-01-30 11:13 | Observation (INO) | payer MEDICARE, OTHER ==
[2020-01-30] MEDS ORDERED: ONDANSETRON ODT 8 MG TAB SL ONE (11:28)
[2020-01-30] MEDS ORDERED: SODIUM CHLORIDE 0.9% 1000ML 1,000 ML IVS ONE (11:52)
[2020-01-30] MEDS ORDERED: MAGNESIUM SULFATE PREMIX 2GM 2 GM in PREMIX BAG 1 BAG IVPB ONE (11:52)
[2020-01-30] MEDS ORDERED: SUCRALFATE 1 GM/10 ML 1 GM UD PO ONE (11:52)
[2020-01-30] MEDS ORDERED: MAGNESIUM SULFATE PREMIX 2GM 50 ML IVPB ONE (12:09)
--- NOTE | 2020-01-30 12:13 | RAD ---
EXAM DESCRIPTION: Abdomen Series CLINICAL HISTORY: nv COMPARISON: 31 Jan 2011 TECHNIQUE: PA chest with supine and upright views of the abdomen] FINDINGS: The patient is poststernotomy. Pleural calcification is observed. Cardiomegaly is evident. No interval changes observed from a prior exam of 22 August 2019 the abdominal bowel gas pattern is normal. No evidence of free air is observed. No renal calcifications are detected. IMPRESSION: Unremarkable acute abdominal series. Electronically signed by: Domingo Munoz MD 01/30/2020 12:12 PM CDT
--- NOTE | 2020-01-30 12:40 | ED.PDOC ---
History of Present Illness - General Chief Complaint: GI Problem Stated Complaint: N/V, Abdominal Pain Time Seen by Provider: 01/30/20 11:15 Source: patient, family Exam Limitations: no limitations - History of Present Illness Initial Comments: The patient is a 74-year-old male presented emergency room secondary to nausea and vomiting worse over the last couple of days. He thinks maybe 5 or 6 episodes over the last 2 days. He has had increased nausea over the last couple of months however. He has been off and on several different medications thinking they were the cause. He is currently off of amiodarone. He does have a history of significant frequent PVCs and PACs. He does see a linoleum floor layer in the [facility] who is in agreement with him coming off of the amiodarone. He is on metoprolol for rhythm control. No fevers. No sore throat. No real abdominal pain. He does have a history of some reflux and does take Coumadin. He denies any blood in the vomitus or the stool or any melena. No fever. No new weakness. No syncope. He does have a history of a low magnesium. He has had his appendix out in the past. No history of diverticulitis or pancreatitis in the past. He does still have his gallbladder. Timing/Duration: unsure Severity: moderate Improving Factors: nothing Worsening Factors: eating Associated Symptoms: loss of appetite, malaise, nausea/vomiting Allergies/Adverse Reactions: Allergies NO KNOWN ALLERGY Allergy (Verified 01/30/20 11:29) Home Medications: Ambulatory Orders Aspirin [Aspirin Adult Low Dose] 81 mg PO DAILY 03/11/19 Cyclobenzaprine HCl [Flexeril] 10 mg PO TID 03/11/19 Krill Oil [Krill Oil Montalba-3] 1 cap PO DAILY 03/11/19 Metformin HCl [Glucophage] 1,000 mg PO BID 03/11/19 Omeprazole 20 mg PO BEDTIME 03/11/19 Pravastatin Sodium 40 mg PO DAILY 03/11/19 Warfarin Sodium 6 mg PO .MOTUTHFRSU 03/11/19 Furosemide [Lasix] 20 mg PO DAILY 04/03/19 Metoprolol Succinate [Metoprolol Succinate ER] 50 mg PO DAILY 04/03/19 ALPRAZolam [Xanax] 0.25 mg PO TID 10 Days tab 04/10/19 Review of Systems - Review of Systems Constitutional: States: malaise EENTM: States: no symptoms reported Respiratory: States: no symptoms reported Cardiology: States: no symptoms reported Gastrointestinal/Abdominal: States: see HPI Genitourinary: States: no symptoms reported Musculoskeletal: States: no symptoms reported Skin: States: no symptoms reported Neurological: States: no symptoms reported Endocrine: States: no symptoms reported All other Systems: No Change from Baseline Past Medical History (General) - Patient Medical History Hx Stroke: No Hx of COPD: No Hx Cardiac Disorders: Yes - A fib Hx Congestive Heart Failure: No Hx Hypertension: Yes Hx Diabetes: Yes Hx MRSA: No Surgical History: appendectomy, coronary bypass surgery - Vaccination History Hx Tetanus, Diphtheria Vaccination: Yes Hx Influenza Vaccination: Yes Hx Pneumococcal Vaccination: Yes - Social History Hx Tobacco Use: Yes - Quit 1977 Hx Alcohol Use: No Hx Substance Use: No Hx Substance Use Treatment: No Hx Depression: No Hx Physical Abuse: No Hx Emotional Abuse: No - Activities of Daily Living Hospice Agency (if applicable):: None - Female History Patient is a Female of Child Bearing Age (10 -59 yrs old): No Patient : No - Triage Comment ED Triage Comment: nausea and vomiting for several days to a few weeks. voices that he started having abdominal pain today with nausea. was seen by Sanna Coronado on Monday and then again today due to abdominal pain. voices he feels it is medication induced. pt alert and orientedx3, converses with ease, follows commands. skin color appears pale. pt ambulating to ED bed 3 without difficulty. Family Medical History - Family History Father Family History: Unknown Hx Cardiac Disease: Yes - brother-mi Hx Family Cancer: Yes - dad-pancreas;mom-ovarian Mother Family History: Unknown Hx Family Cancer: Yes Physical Exam - Physical Exam General Appearance: Alert, Comfortable, No apparent distress Eye Exam: bilateral normal Ears, Nose, Throat: hearing grossly normal, normal ENT inspection Neck: full range of motion, supple Respiratory: lungs clear, normal breath sounds, no respiratory distress, no accessory muscle use Cardiovascular/Chest: normal peripheral pulses, irregularly irregular - Regular rate Peripheral Pulses: radial,right: 2+, radial,left: 2+ Gastrointestinal/Abdominal: non tender, soft Rectal Exam: deferred Back Exam: no CVA tenderness, no vertebral tenderness Extremity: normal range of motion, non-tender, no calf tenderness, normal capillary refill, pedal edema - +2 edema to bilateral lower extremities which is apparently chronic. Neurologic: briefcase sewer II-XII nml as tested, alert, normal mood/affect, oriented x 3 Skin Exam: normal color Comments: Vital Signs - 24 hr 01/30/20 01/30/20 01/30/20 11:26 11:30 12:00 Temperature 97.8 F 97.8 F Pulse Rate 75 Pulse Rate [ 75 75 80 brachial] Respiratory 18 18 Rate Blood Pressure 128/60 140/80 [Left Arm] O2 Sat by Pulse 99 99 Oximetry 01/30/20 01/30/20 01/30/20 12:01 12:02 12:14 Temperature 97.8 F 97.8 F 97.8 F Pulse Rate 67 Pulse Rate [ 86 82 67 brachial] Respiratory 18 18 18 Rate Blood Pressure 159/116 159/88 159/88 [Left Arm] O2 Sat by Pulse 99 99 99 Oximetry Progress - Progress Progress: 01/30/20 12:42 The patient is a 74-year-old male presenting basically due to nausea and vomiting and is increased in frequency particularly over the last 2 days but seems to have been present for several months. The patient does have a history of reflux and gastritis which is likely being made worse by a slightly supratherapeutic INR. He will need to have his Coumadin level gradually adjusted down. Patient did receive a dose of Carafate here and I do believe he does has an acid reducing medication on board at home. He is also received a dose of Zofran here. No vomiting since arrival. He is actually hungry at this point. The patient does have a mildly worsening anemia when compared to blood work from about 9 months ago. We will send off for a fecal occult on the stool. An iron panel is also being sent off for. Additionally, possibly contributing to the arrhythmia is hypomagnesemia. He is receiving 2 g here. Also possibly contributing to the overall picture it does appear like the patient is hypothyroid. A free T4 is being sent. He has been given a dose of 100 mcg of Synthroid. We will plan to admit for continued monitoring of the above issues. BNP is more elevated than normal however this may correlate with the patient going off of his amiodarone recently. He appears possibly mildly dehydrated based on elevated BUN and his history of vomiting. For this reason he is receiving a 500 cc normal saline bolus only. Monitor for fluid status. Admit for continued monitoring care. - Results/Orders Results/Orders: Laboratory Tests 01/30/20 01/30/20 01/30/20 11:30 11:30 11:30 WBC 5.1 RBC 3.83 L Hgb 9.9 L Hct 30.7 L MCV 80.2 MCH 25.9 L MCHC 32.2 L RDW 16.9 H Plt Count 305 MPV 8.0 Absolute Neuts (auto) 3.20 Absolute Lymphs (auto) 0.80 L Absolute Monos (auto) 0.80 Absolute Eos (auto) 0.30 Absolute Basos (auto) 0.00 Neutrophils % 61.8 Lymphocytes % 16.3 L Monocytes % 15.0 H Eosinophils % 6.0 H Basophils % 0.9 PT 35.6 H* INR 3.60 H* PTT (SP) 42.1 H Sodium 131 L Potassium 3.8 Chloride 95 L Carbon Dioxide 27 Anion Gap 12.8 BUN 20 H Creatinine 1.29 BUN/Creatinine Ratio 15.5 Random Glucose 105 Serum Osmolality 265.6 L Calcium 8.8 Magnesium 1.5 L Total Bilirubin 1.1 H AST 32 ALT 20 Alkaline Phosphatase 107 Creatine Kinase 109 CK-MB (CK-2) 3.2 CK-MB (CK-2) % Not Reportable Troponin I 0.02 B-Natriuretic Peptide 1320.0 H* Serum Total Protein 6.6 Albumin 3.8 Globulin 2.8 Albumin/Globulin Ratio 1.4 Amylase 41 Lipase 25 TSH 17.21 H Urine Color Urine Appearance Urine pH Ur Specific [place] Urine Protein Urine Glucose (UA) Urine Ketones Urine Blood Urine Nitrite Urine Bilirubin Urine Urobilinogen Ur Leukocyte Esterase Urine RBC Urine WBC Ur Epithelial Cells Amorphous Sediment Urine Bacteria 01/30/20 12:18 WBC RBC Hgb Hct MCV MCH MCHC RDW Plt Count MPV Absolute Neuts (auto) Absolute Lymphs (auto) Absolute Monos (auto) Absolute Eos (auto) Absolute Basos (auto) Neutrophils % Lymphocytes % Monocytes % Eosinophils % Basophils % PT INR PTT (SP) Sodium Potassium Chloride Carbon Dioxide Anion Gap BUN Creatinine BUN/Creatinine Ratio Random Glucose Serum Osmolality Calcium Magnesium Total Bilirubin AST ALT Alkaline Phosphatase Creatine Kinase CK-MB (CK-2) CK-MB (CK-2) % Troponin I B-Natriuretic Peptide Serum Total Protein Albumin Globulin Albumin/Globulin Ratio Amylase Lipase TSH Urine Color Yellow Urine Appearance Clear Urine pH 6.0 Ur Specific [place] 1.020 Urine Protein 30 Urine Glucose (UA) Negative Urine Ketones Trace Urine Blood Negative Urine Nitrite Negative Urine Bilirubin Small H Urine Urobilinogen 1.0 Ur Leukocyte Esterase Negative Urine RBC 0-1 Urine WBC 0 Ur Epithelial Cells 0-1 Amorphous Sediment 1+ Urine Bacteria 0 EKG shows normal sinus rhythm with occasional PACs and frequent PVCs. There is left axis deviation likely indicating a left bundle branch block. Rate is 82 bpm. Difficult to interpret otherwise secondary to the frequent PVCs but this does appear to be consistent with her previous EKG from March 2019. Acute abdominal series appears benign however there is some cardiomegaly. No overt current fluid overload. Departure - Departure Clinical Impression: Frequent PVCs, Mild dehydration, Supratherapeutic INR, Hypomagnesemia Gastritis Qualifiers: Gastritis type: unspecified gastritis Chronicity: acute Gastritis bleeding: without bleeding Qualified Code(s): K29.00 - Acute gastritis without bleeding Hypothyroidism Qualifiers: Hypothyroidism type: due to medication Qualified Code(s): E03.2 - Hypothyroidism due to medicaments and other exogenous substances Nausea and vomiting Qualifiers: Vomiting type: unspecified Vomiting Intractability: non-intractable Qualified Code(s): R11.2 - Nausea with vomiting, unspecified Anemia Qualifiers: Anemia type: unspecified type Qualified Code(s): D64.9 - Anemia, unspecified Disposition: Admit Patient Departure Forms: ED Discharge - Pt. Copy, Patient Portal Self Enrollment Referrals: Sampson Linares MD [Primary Care Provider] - 1-2 Weeks Home Medications: Ambulatory Orders Aspirin [Aspirin Adult Low Dose] 81 mg PO DAILY 03/11/19 Cyclobenzaprine HCl [Flexeril] 10 mg PO TID 03/11/19 Krill Oil [Krill Oil Montalba-3] 1 cap PO DAILY 03/11/19 Metformin HCl [Glucophage] 1,000 mg PO BID 03/11/19 Omeprazole 20 mg PO BEDTIME 03/11/19 Pravastatin Sodium 40 mg PO DAILY 03/11/19 Warfarin Sodium 6 mg PO .MOTUTHFRSU 03/11/19 Furosemide [Lasix] 20 mg PO DAILY 04/03/19 Metoprolol Succinate [Metoprolol Succinate ER] 50 mg PO DAILY 04/03/19 ALPRAZolam [Xanax] 0.25 mg PO TID 10 Days tab 04/10/19
[2020-01-30] MEDS ORDERED: LEVOTHYROXINE SODIUM 0.1 MG TAB ONE (12:57)
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
[2020-01-30] MEDS ORDERED: ONDANSETRON INJ 4 MG/2 ML VIAL IV PRN (13:29)
[2020-01-30] MEDS ORDERED: ACETAMINOPHEN 325 MG TAB PO PRN (13:29)
[2020-01-30] MEDS ORDERED: SODIUM CHLORIDE 0.9% (FLUSH) 10 ML SYG IV PRN (13:29)
[2020-01-30] MEDS ORDERED: IV SET AND CAP CHANGE INJ INJ SCH (13:30)
[2020-01-30] MEDS ORDERED: traMADol HCL 50 MG TAB PO PRN (14:06)
[2020-01-30] MEDS: CYCLOBENZAPRINE HCL 10 MG TAB PO SCH ×2 (15:46→20:28)
[2020-01-30] MEDS ORDERED: diphenhydrAMINE HCL 25 MG CAP PO PRN (16:17)
[2020-01-30] MEDS ORDERED: ALPRAZolam 0.25 MG TAB PO PRN (16:17)
[2020-01-30] MEDS ORDERED: SODIUM CHLORIDE 0.9% 500ML 500 ML IVS ONE (16:19)
[2020-01-30] MEDS: metFORMIN HCL 500 MG TAB PO SCH (16:40)
[2020-01-30] MEDS: SODIUM CHLORIDE 0.9% (FLUSH) 10 ML SYG IV SCH (20:29)
[2020-01-30] MEDS ORDERED: PRAVASTATIN SODIUM 20 MG TAB PO SCH (21:00)
[2020-01-31 06:04] VITALS: TEMP 98.2; O2SAT 98
[2020-01-31] MEDS ORDERED: LEVOTHYROXINE SODIUM 0.1 MG TAB PO SCH (06:30)
[2020-01-31] MEDS: SODIUM CHLORIDE 0.9% (FLUSH) 10 ML SYG IV SCH (08:25)
[2020-01-31] MEDS: metFORMIN HCL 500 MG TAB PO SCH (08:25)
[2020-01-31] MEDS: CYCLOBENZAPRINE HCL 10 MG TAB PO SCH (08:25)
[2020-01-31] MEDS ORDERED: METOPROLOL SUCCINATE XL 50 MG TAB PO SCH (09:00)
[2020-01-31] MEDS ORDERED: FUROSEMIDE 40 MG TAB PO SCH (09:00)
[2020-01-31] MEDS ORDERED: ASPIRIN (ENTERIC COATED) 81 MG TAB PO SCH (09:00)
[2020-01-31 12:08] VITALS: BP 128/71
[2020-01-31] MEDS ORDERED: LEVOTHYROXINE SODIUM 0.025 MG TAB PO ONE (12:33)
--- NOTE | 2020-02-03 09:22 | DS ---
SUPERVISING PHYSICIAN: Chelsey Pitt MD ADMISSION DIAGNOSIS: 1. Irregular heart rate with frequent multifocal PVCs. 2. Hypomagnesemia. 3. Moderate dehydration with nausea, vomiting or diarrhea. 4. Hypothyroidism, previously undiagnosed and presently on no thyroid medications. 5. Supratherapeutic INR on Coumadin with an admitting INR of 3.6. 6. History of coronary artery disease with a previous coronary artery bypass graft. 7. History of atrial fibrillation on Coumadin and metoprolol. 8. Gastroesophageal reflux disease. 9. Diabetes mellitus, type 2, on oral therapy. 10. Congestive heart failure of unknown etiology. He is on furosemide and a beta bobby, but is not on an VIRGINIE or ARB at this time. He does see Dr. Thomson, ticket maker in [place]. We are also awaiting the echocardiogram results. DISCHARGE DIAGNOSIS: 1. Atrial fibrillation, chronic, with controlled ventricular rate and a few PVCs with rate controlled with beta bobby and the patient on Coumadin with a supratherapeutic Coumadin level prior to discharge. 2. Electrolyte imbalance to include hypomagnesemia, corrected with parenteral replacement. 3. Dehydration exacerbating #1 due to nausea, vomiting and diarrhea, resolved prior to discharge. 4. Newly diagnosed hypothyroidism not previously on medication, needs to be addressed at followup. 5. Supratherapeutic INR on Coumadin, showing return to more therapeutic levels with no signs of bleeding. 6. Microcytic/hypochromic anemia, needing further followup as an outpatient. 7. History of coronary artery disease with a previous coronary artery bypass graft. 8. Gastroesophageal reflux disease. 9. Diabetes mellitus, type 2, on oral therapy. 10. Congestive heart failure, uncertain etiology with echocardiogram still pending at time of discharge with the patient on Lasix, a beta bobby. He is followed by Dr. Thomson, ticket maker in [place]. He is not currently on an VIRGINIE or ARB. REASON FOR HOSPITALIZATION: This is a 74 year-old male patient who presented to the Emergency Room after 2 or 3 days of nausea or vomiting with some mild diarrhea. He had been adjusting his heart medication and has been on and off amiodarone and it sounds like he did not tolerate the amiodarone very well so he has had some increased nausea over the last several months. He does have a significant history of congestive heart failure and atrial fibrillation and is on Coumadin therapy. He is also on metoprolol as well as some Lasix. In the Emergency Room, his initial EKG showed underlying sinus right with frequent multifocal PVCs. His heart rate was in the low 60s to the mid 70s. His temperature was 97.8, heart rate 75, blood pressure 128/60, respiratory rate 18, oxygen saturation 99% on room air. His lab studies showed a WBC of 5.1 with hemoglobin 9.9, hematocrit 30.7. Hemoglobin and hematocrit have been trending down over the last several years. He had his H&H done in March of 2019 and his hemoglobin was 13. There was no left shift on differential. PT was 35.6, INR 3.6, PTT 42.1. Sodium 131, potassium 3.8, chloride 95, BUN 20, creatinine 1.29, magnesium low at 1.5. Total bilirubin 1.1, BNP 1,320 with a TSH of 17.21. He does not have a history of hypothyroidism. His iron was 27, TIBC 43.1, iron saturation was 6.2. Urinalysis was basically unremarkable. Influenza A and B per PCR were both negative. He was given a small amount of fluids as well as some sucralfate and some magnesium. He was also started on 0.1 of levothyroxine. I was called for admission to the hospital, he was placed in observation in stable condition. LABORATORY: White count at discharge was 2,500 with hemoglobin 8.6, hematocrit 26.7. RBC indices indicate a microcytic/hypochromic anemia with platelet count 181,000. Differential was without a left shift. Coagulation studies showed INR on morning of discharge was 3.81 with PT 37. Chemistries showed sodium 132, potassium 3.9, magnesium 1.6, iron 27, TIBC 431, iron saturation 6.2. Liver functions were all within normal limits. TSH elevated at 17 with normal free T4 at 0.83. Urinary symptoms showed a small amount of bilirubin. He had one occult blood stool that was positive. MICROBIOLOGY: Influenza A and B by PCR was negative. RADIOLOGY: Abdominal x-ray per radiologic interpretation showed unremarkable acute abdominal series. HOSPITAL COURSE: Mr. Bonilla was placed in observation on 01/30/20 due to some nausea, vomiting and dehydration for fluids. He was having some PVCs associated with atrial fibrillation, but his INR was showing supratherapeutic levels as well. He had no obvious bleeding other than he did have one occult blood that was positive. He was given fluids which he tolerated well. Echocardiogram was done and pending at time of discharge. He was clinically stable and will need followup on labs including his INR, TSH for questionable hypothyroidism and anemia workup with iron deficiency anemia, but all were stable. It was felt he was clinically stable to continue with outpatient management. DISCHARGE ASSESSMENT: VITAL SIGNS: Temperature 98.2, pulse 62, blood pressure 120/71, respirations 18, saturation 98% on room air. GENERAL: The patient was resting comfortably and did not appear to be in any acute distress. He was alert. CHEST: Clear to auscultation bilaterally without any rales, rhonchi or wheezing. HEART: Slightly irregular rate and rhythm without appreciable murmurs, gallops, or rubs. ABDOMEN: Soft, nontender, positive bowel sounds. EXTREMITIES: Without edema. NEUROLOGIC: Alert and oriented x3. PLAN: Mr. Bonilla was discharged on 01/31/20 to followup with his ticket maker and his primary care provider. He is scheduled to see ELMA Davis, at the urgent care center on 02/04/20 at 9:00. He was instructed to go to the urgent care center on Monday with a script for laboratory studies to be done including CBC and INR with PT with results forwarded to Sravani Coronado for review before he resumes his Coumadin dosing. He is to continue his home medications as prior to hospitalization. He will need further followup on his elevated TSH for possible hypothyroidism, continuation of medication and dosing. He also needs to be followed up in regards to his iron deficiency anemia. He will need close followup in regards to the occult blood that was positive. He was instructed to call Sarvani Coronado's office or return to the ER should he have any concerning symptoms. Diet is regular diet as tolerated as instructed. Activity to as tolerated. Increase fluids to stay hydrated. Echocardiogram is pending and needs to be followed up with Sravani Coronado and his ticket maker. DISPOSITION: The patient was discharged home. CONDITION ON DISCHARGE: Stable and improved. #[id number] [facility]
== END 2020-01-31 12:43 | disposition home or self-care (01) ==
LOC: ER 11:13 → UNDOADMOB 13:09 → MS 13:09
PROVIDERS: ADMIT Nurse Practitioner Acute Care; ATTEND Nurse Practitioner Family
DX: I48.20 Chronic atrial fibrillation, unspecified (principal); I49.3 Ventricular premature depolarization; E83.42 Hypomagnesemia; E87.8 Other disorders of electrolyte and fluid balance, not elsewhere classified; E86.0 Dehydration; E03.9 Hypothyroidism, unspecified; R79.1 Abnormal coagulation profile; D50.9 Iron deficiency anemia, unspecified; I25.10 Atherosclerotic heart disease of native coronary artery without angina pectoris; K21.9 Gastro-esophageal reflux disease without esophagitis; E11.9 Type 2 diabetes mellitus without complications; I11.0 Hypertensive heart disease with heart failure; I50.9 Heart failure, unspecified; I44.7 Left bundle-branch block, unspecified; E78.5 Hyperlipidemia, unspecified; F41.9 Anxiety disorder, unspecified; M17.0 Bilateral primary osteoarthritis of knee; Z79.01 Long term (current) use of anticoagulants; Z79.84 Long term (current) use of oral hypoglycemic drugs; Z79.82 Long term (current) use of aspirin; Z79.899 Other long term (current) drug therapy; Z95.1 Presence of aortocoronary bypass graft; Z90.49 Acquired absence of other specified parts of digestive tract; Z87.891 Personal history of nicotine dependence; Z82.49 Family history of ischemic heart disease and other diseases of the circulatory system; Z80.0 Family history of malignant neoplasm of digestive organs; Z80.41 Family history of malignant neoplasm of ovary
CPT/HCPCS: 96361 ×2; 96365; J7040; J7030; J3475; 82270; 82553; 80053 ×2; 36415 ×4; 82150; 81001; 85025 ×2; 82550; 84439; 83690; 83735 ×3; 85730; 85610 ×2; 84443; 84484; 83880; 83540; 83550; 74019; 94760 ×2; 99285; 93306; 93005; G0378; 87502

== ENCOUNTER → 2020-04-09 | Outpatient (CLI) | payer MEDICARE, OTHER | LOC: HHH 11:57 | PROVIDERS: ATTEND Nurse Practitioner Family | DX: I11.0 Hypertensive heart disease with heart failure (principal); E11.42 Type 2 diabetes mellitus with diabetic polyneuropathy; E03.9 Hypothyroidism, unspecified; I50.9 Heart failure, unspecified; Z79.01 Long term (current) use of anticoagulants ==

== ENCOUNTER → 2020-05-29 | Outpatient (CLI) | payer MEDICARE, OTHER | LOC: HHH 11:29 | PROVIDERS: ATTEND Nurse Practitioner Family | DX: I50.9 Heart failure, unspecified (principal); E11.8 Type 2 diabetes mellitus with unspecified complications; Z79.01 Long term (current) use of anticoagulants ==

== ENCOUNTER → 2020-06-12 | Outpatient (CLI) | payer MEDICARE, OTHER | LOC: HHH 11:25 | PROVIDERS: ATTEND Nurse Practitioner Family | DX: E03.9 Hypothyroidism, unspecified (principal); Z79.01 Long term (current) use of anticoagulants ==

== ENCOUNTER → 2020-07-09 | Outpatient (CLI) | payer MEDICARE, OTHER | LOC: HHH 11:37 | PROVIDERS: ATTEND Emergency Medicine | DX: I48.91 Unspecified atrial fibrillation (principal); I50.9 Heart failure, unspecified ==

== ENCOUNTER → 2020-09-03 | Outpatient (CLI) | payer MEDICARE, OTHER | LOC: HHH 11:00 | PROVIDERS: ATTEND Nurse Practitioner Family | DX: I48.91 Unspecified atrial fibrillation (principal) ==

== ENCOUNTER → 2020-09-17 | Outpatient (CLI) | payer MEDICARE, OTHER | LOC: HHH 11:25 | PROVIDERS: ATTEND Nurse Practitioner Family | DX: I50.9 Heart failure, unspecified (principal); I48.11 Longstanding persistent atrial fibrillation ==

== ENCOUNTER → 2020-11-11 | Outpatient (CLI) | payer MEDICARE, OTHER | LOC: HHH 10:45 | PROVIDERS: ATTEND Nurse Practitioner Family | DX: I48.91 Unspecified atrial fibrillation (principal) ==